=== PATIENT | female | born 1970 | race Caucasian/White ===

== ENCOUNTER 2023-02-15 06:57 | Day surgery (SDC) | payer OTHER, SELFPAY ==
[2023-01-30 11:26] VITALS: BMI 30.6
--- NOTE | 2023-02-14 08:47 | P.PNAN_ITS ---
Anes - Initial Pre Proc Eval Procedure: Operation Date: 02/15/23 07:30 Proposed Procedures p Brostrum Procedure Right Ankle - Ramses Montes JR, MD Date/Time: 02/14/23 08:47 Surgeon: Ramses Montes JR, MD Pre Op Diagnosis: Chronic Lateral Right Ankle Instability Patient Data Age: 52 Gender: F Height: 1.68 m Weight: 86 kg Allergies Allergy/AdvReac Type Severity Reaction Status Date / Time No Known Allergies Allergy Verified 02/15/23 06:20 Home Medications Medication Instructions Recorded Confirmed Type oxycodone-acetaminophen 5 mg-325 1 tablet PO PRN PRN Pain 02/15/23 02/15/23 History mg tablet rivaroxaban 10 mg tablet (Xarelto) 10 mg PO DAILY 02/15/23 02/15/23 History Patient hx anesthesia problems: none Family hx anesthesia problems: none Results Review: All pre-operative results and documents have been reviewed as part of the pre- operative evaluation. [facility] Family History Family History Father Diabetes mellitus Family history of pancreatic cancer Mother Diabetes mellitus Hypertension Family history of elevated blood lipids Grandparent Family history of glaucoma Sibling Family history of thyroid disease Social History Social History Smoking status: Never smoker Second hand tobacco smoke exposure: No Alcohol intake: current Drinks per week: 0 Alcohol use details: SELDOM Substance use: never Substance use type: does not use Living arrangements: with family Spiritual care concerns: No Anes - Eval Final PreProcedure Day of Procedure 02/14/23 08:47 Patient weight: obese Heart: regular rate and rhythm Lungs: clear to auscultation Airway: Mallampati scale class II Neurological: alert and oriented Last oral intake: >/= 8 hours ASA classification: II Emergent: no Anesthetic plan: proceed Anesthesia type and monitoring: general ETT and standard monitoring Results Review: All pre-operative results and documents have been reviewed as part of the pre- operative evaluation. Informed Consent: The patient's anesthetic plan and its attendant risks and benefits were discussed with the patient/family/POA. Questions were solicited and answers pro vided to the satisfaction of the patient/family/POA.
[2023-02-15] VITALS (7 sets, daily range): BP systolic 121–152; BP diastolic 74–108; PULSE 69–114; RESP 14–18; TEMP 36.2–36.4; O2SAT 98–100
--- NOTE | ~2023-02-15 | XR_ITS ---
EXAMINATION: XR surgery orthopedic DATE: 02/15/2023 08:58 INDICATION: Brostrom procedure at the right ankle TECHNIQUE: Lateral fluoroscopic images of the right ankle, mid and hindfoot were obtained during proc edure performed by Dr. Montes. Radiologist was not present for the imaging or procedure. The amount of fluoroscopy time used during this procedure was 0.1 minutes. COMPARISON: None. FINDINGS: Bone alignment is normal. No fracture. Joint spaces appear normal. Small Achilles and plantar calcane al spurs. The tip of a metallic wire potentially for marking projects on the anterior margin of the d istal tip of the calcaneus near the expected site of insertion of the anterior talofibular ligament. IMPRESSION: 1. Fluoroscopy utilized during reported Brostrom procedure at the right ankle. See procedure note for further detail. Reviewed, dictated and finalized at location A.
[2023-02-15] MEDS: LACTATED RINGERS 1,000 ML 30 ML IV CONT ×2 (07:12→09:33)
--- NOTE | 2023-02-15 07:17 | WPDHPUPDATE1 ---
History and Physical Update Update Date/Time: 02/15/23 07:17 History and Physical has been reviewed, including an updated exam of the patient. There are NO changes in the patient's condition. Risks, benefits, and alternatives have been discussed and questions answered. Patient agrees to proceed with procedure.
[2023-02-15] MEDS: ceFAZolin SODIUM 2 GM/20 ML SW SYRINGE IV PUSH (07:30)
[2023-02-15] MEDS: LIDOCAINE HCL 2% LOCAL INJ 20 ML VIAL 10 ML INFILTRATE (08:29)
--- NOTE | 2023-02-15 08:54 | W.PM.PROC2 ---
Procedure Note - Detailed Date of Procedure 02/15/23 Pre-op Diagnosis Chronic Lateral Right Ankle Instability Post-op Diagnosis Same Procedure Performed Brostrom Lateral ankle stabilization right Surgeon Ramses Montes JR, DPM Anesthesia General and Local Indications Painful unstable right ankle Description of Procedure Under mild sedation, the patient was brought in to the operating room, placed on the operating table in the lateral decubitus position. A pneumatic thigh tourniquet was placed about the patient's thigh. Following general anesthesia, local anesthesia was obtained about the proximal leg utilizing 20 mL of local anesthesia of a one to one mix of 0.5% Marcaine plain and 2% Lidocaine plain, administered just inferior and posterior to the neck of the fibula 10ccs and also 10cm superior to the lateral malleolus with an additional 10cc's. The foot and distal leg were then scrubbed, prepped, and draped in the usual aseptic manner. An Esmarch bandage was then used to exsanguinate the patient's foot and ankle and the pneumatic thigh tourniquet was then inflated. An incision was made starting 2cm proximal to the lateral malleolus of the right ankle extending four centimeters in an oblique fashion over the lateral aspect of neck of the talus. The incision was continued deep down through the subcutaneous tissues using sharp and blunt dissection. All bleeders were ligated and cauterized as necessary. Next I identified the anterior aspect of the lateral malleolus and cut through the lateral anterior capsule and the elongated lateral ankle ligaments exposing the anterior and inferior margins of the distal fibula. I used a rongeur to expose cancellous bone in order to promote adhesion along the anterior and inferior aspect of the fibular. Next, I utilized the Arthrex Drill guide to drive a guide wire for the Arthrex internal brace system into the lateral aspect of the talus. The guide was positioned within the sinus tarsi canal with the paddle at the four thirty position in order to appropriately orient the distal arm of the internal brace anchor. I utilized fluoroscopy to make sure that the guide wire was adequately positioned. Moreover, I tapped and screwed in the distal anchor for the Internal Brace Implant. Next, I drilled two holes and tapped in the biocomposite Suture Sukhjinder anchors. In addition in between the Suture Sukhjinder drill holes I drilled a hole for the fibular component of the Internal Brace system. Next, with the foot everted and dorsiflexed I advanced the lateral ankle ligament and retinaculum to the fibula. Finally I properly tensioned the fibular component of the Arthrex Internal brace system and drove in the bone anchor following the standard technique guidelines. the foot was held slightly flexed and neutral in the frontal plane during the tensioning of the Internal brace. I utilized the remaining two sutures and provided needles from the Suture Taks to reinforce the repair by incorporating the lateral ankle capsule and ligaments and secured to the periosteum overlying the distal fibula. Excellent improvement was noted as far as the clinical anterior drawer and talar tilt. Next the subcutaneous structures were reapproximated and coapted utilizing 4-0 Vicryl. Next, the skin was reapproximated and coapted utilizing 4-0 Monocryl in running subcuticular suture fashion technique. Upon completion of the procedure, the incisions were all dressed with 1/4 inch Steri Strips, Adaptic, 4x4s, Kerlix, and Coban. The pneumatic thigh tourniquet was then deflated and a prompt hyperemic response was noted to all digits of the affected foot. A posterior splint was then applied with the foot held 90 degrees to the leg and the foot everted. The patient did very well with the procedure and the anesthesia. The patient was transferred to the recovery room with vital signs stable and vascular status intact to all toes of the affected foot. Following a per
[2023-02-15] MEDS: fentaNYL CITRATE INJ (*CRX) 100 MCG/2 ML VIAL 25 MCG IV PUSH ×3 (09:14→09:38)
--- NOTE | 2023-02-15 09:48 | WPDANESPN ---
Anes - Prog Note Post-Op Date/Time: 02/15/23 09:48 Cardiovascular status: normal Respiratory status: normal Airway patency: baseline Mental status: baseline Post-Op hydration status: normal Vital Signs: Last Vital Signs Temp 36.2 C L 02/15/23 08:57 Pulse 97 02/15/23 09:40 Resp 18 02/15/23 09:40 BP 121/74 02/15/23 09:40 Pulse Ox 98 02/15/23 09:40 O2 Del Method Room Air 02/15/23 09:40 O2 Flow Rate 10 02/15/23 09:10 Pain Score (VAS): 2 I/O: Intake & Output 02/14/23 02/15/23 02/15/23 23:59 07:59 15:59 Intake Total 1100 Balance 1100 Post-procedural complaints: none Patient Feedback: Patient satisfied with anesthetic care. Other Findings: Patient vital signs back to baseline. Patient denies nausea and vomiting. Patient's pain under control. Patient OK for discharge.
[2023-02-15] MEDS: oxyCODONE HCL (*CRX) 5 MG TAB IR PO (10:25)
== END 2023-02-15 10:30 | disposition home or self-care (01) ==
PROVIDERS: PCP Family Medicine; Visit Provider Podiatrist Foot & Ankle Surgery
PROC: (CPT 27698; principal; 2023-02-15 07:30)
DX: M25.371 Other instability, right ankle (principal)
CPT/HCPCS: 27696; L8699; 99199

== ENCOUNTER → 2023-08-08 07:50 | Outpatient (CLI) | payer OTHER, SELFPAY ==
--- NOTE | ~2023-08-08 | MR_ITS ---
MRI of the right knee Clinical history: Pain Technique: Coronal proton density and proton density-weighted images, sagittal proton-density and T2 fat-sat images, and axial proton-density fat-saturated images were acquired. Findings: Anterior and posterior cruciate ligaments are intact. Medial collateral ligament and the la teral collateral ligament complex are intact. Popliteus tendon is intact. There is a radial tear at the posterior root of the medial meniscus. No lateral meniscal tear identif ied. There is high-grade chondral loss extensively involving the lateral patellar facet, with subchondral cystic change present. Remaining articular cartilage is well preserved. Remaining bone marrow signals are unremarkable. Extensor mechanism is intact. There is moderate joint effusion. No Weiss's cyst. Impression: Radial tear at the posterior root of the medial meniscus. Grade IV chondromalacia patella, as detailed above. Moderate joint effusion. Reviewed, dictated and finalized at [facility]. [employer] OFFICER Impression: Radial tear at the posterior root of the medial meniscus. Grade IV chondromalacia patella, as detailed above. Moderate joint effusion.
== END ==
PROVIDERS: PCP Family Medicine; Visit Provider Family Medicine
DX: M25.461 Effusion, right knee (principal)
CPT/HCPCS: 73721

== ENCOUNTER 2023-12-16 01:16 | Day surgery (SDC) | payer OTHER, SELFPAY ==
[2023-12-11 11:43] VITALS: BMI 33.3
--- NOTE | 2023-12-11 11:44 | PC.NURSE ---
Report to the Outpatient Waiting Room, entrance under the green pavilion located off [facility], at time _1300_ on date [id number]_. Planned Procedure Time: _1500_. Time changes happen often and if your time is changed the preop area will call you the afternoon before. - You and your visitor will be asked to self-screen and do not enter if you have any COVID symptoms. - A mask is optional within the hospital at this time. Patients may have clear liquids (water, carbonated beverages, clear teas, apple juice) until 3 hours prior to surgery with a maximum of 20 ounces. - No food from midnight until time of surgery Take the following medications with a SIP of water the morning of surgery: ____None DO NOT STOP ANY OF YOUR OTHER PRESCRIPTION MEDICATIONS PRIOR TO SURGERY ?EXCEPT THE FOLLOWING Medications to discontinue per physician None Date to take last dose Please no make-up, nail comoran, hairspray, perfume, deodorant, or body powder the day of surgery. No jewelry (including any body piercings) or valuables the day of surgery, leave them at home. Please take a shower or bath the night before, or the morning of, surgery with an antibacterial soap. Wear comfortable, loose fitting clothing. - Jewelry must be removed prior to entering the operating room. Rings and piercings that are not removed may be cut off. - The hospital will not accept responsibility for valuables. - Please leave all valuables, including medications, at home the day of surgery. If you are going home after surgery, a licensed local owner operator truck driver must drive you home. - NO public transportation without another adult if you receive anesthesia. - We recommend that an adult stay with you for 24 hours following discharge. - We also recommend that you do not drive, make important decision, drink alcoholic beverages, or take any drugs that were not prescribed by your health care provider for at least 24 hours after your discharge time. Follow any additional instructions given to you from your surgeon. If you or anyone in your household have experienced Covid symptoms in the past week, please notify your surgeon or the nurse liaison at the phone number below for possible testing. Telephone instructions given to _Darlene___and asked if any additional questions and then verbalized understanding. Patient advised to call surgeon office or pre surgery nurse liaison [phone] if any additional questions.
[2023-12-16] VITALS (8 sets, daily range): BP systolic 125–144; BP diastolic 69–89; PULSE 68–98; RESP 16–18; TEMP 36.1–36.3; O2SAT 97–100
--- NOTE | 2023-12-16 10:22 | WPDHPUPDATE1 ---
History and Physical Update Update Date/Time: 12/16/23 10:22 History and Physical has been reviewed, including an updated exam of the patient. There are NO changes in the patient's condition. Risks, benefits, and alternatives have been discussed and questions answered. Patient agrees to proceed with procedure.
[2023-12-16] MEDS: LACTATED RINGERS 1,000 ML 30 ML IV CONT ×2 (13:20→15:30)
[2023-12-16] MEDS: KETOROLAC 15 MG/ML VIAL (*BKC) IV PUSH (13:25)
[2023-12-16] MEDS: ACETAMINOPHEN 500 MG TABLET 1000 MG PO (13:25)
--- NOTE | 2023-12-16 14:01 | WPDANESEPPF ---
Anes - Initial Pre Proc Eval Procedure: Operation Date: 12/16/23 15:00 Proposed Procedures p Right Knee Arthroscopic Partial Medial Meniscectomy with Patellar Chondroplasty - Lito Lamar MD Date/Time: 12/16/23 14:01 Surgeon: Lito Lamar MD Pre Op Diagnosis: Rt Knee Medial Meniscus Tear Patient Data Age: 53 Gender: F Height: 1.68 m Weight: 93.7 kg Last Vital Signs Temp 96.9 F L 12/16/23 12:45 Pulse 92 12/16/23 12:45 Resp 18 12/16/23 12:45 BP 139/89 12/16/23 12:45 Pulse Ox 98 12/16/23 12:45 O2 Del Method Room Air 12/16/23 12:45 Allergies Allergy/AdvReac Type Severity Reaction Status Date / Time No Known Allergies Allergy Verified 12/16/23 12:54 Home Medications Medication Instructions Recorded Confirmed Type hydrocodone 5 mg-acetaminophen 325 1 - 2 tablet PO Q4-6H PRN pain #30 12/16/23 Rx mg tablet tabs Patient hx anesthesia problems: none Family hx anesthesia problems: none Results Review: All pre-operative results and documents have been reviewed as part of the pre-operative evaluation. [facility] Surgical History Surgical History History of knee surgery x3 - Lt Knee Family History Family History Father Diabetes mellitus Family history of pancreatic cancer Mother Diabetes mellitus Hypertension Family history of elevated blood lipids Grandparent Family history of glaucoma Sibling Family history of thyroid disease Social History Social History Smoking status: Never smoker Second hand tobacco smoke exposure: No Alcohol intake: current Drinks per week: 0 Alcohol use details: SELDOM Substance use: never Substance use type: does not use Do You Feel Safe in your Home?: Yes Lack of Transportation: No Lack of Food: Never True Current Housing: I Have Housing Concerned About Future Housing: No Difficulty Paying Gas/Electric Bills: No Difficulty Paying for Meds: No Currently Unemployed: No Education: High School Diploma/GED Difficulty w/ Childcare or Family Care: No Living arrangements: with family Spiritual care concerns: No Anes - Eval Final PreProcedure Day of Procedure 12/16/23 14:01 Patient weight: normal and obese Heart: regular rate and rhythm Lungs: clear to auscultation Airway: Mallampati scale Neurological: alert and oriented Last oral intake: >/= 8 hours ASA classification: II Emergent: no Anesthetic plan: proceed Anesthesia type and monitoring: general LMA and standard monitoring Results Review: All pre-operative results and documents have been reviewed as part of the pre-operative evaluation. Informed Consent: The patient's anesthetic plan and its attendant risks and benefits were discussed with the patient/family/POA. Questions were solicited and answers provided to the satisfaction of the patient/family/POA.
[2023-12-16] MEDS: ceFAZolin 2 GM/D5W 50 ML 2 GM/50 ML BAG IVPB (14:44)
[2023-12-16] MEDS: BUPIVACAINE/EPINEPHRINE 0.5% 10 ML VIAL 20 ML INFILTRATE (15:16)
--- NOTE | 2023-12-16 15:38 | W.PM.PROC2 ---
Procedure Note - Detailed Date of Procedure 12/16/23 Pre-op Diagnosis 1. Rt Knee Medial Meniscus Tear 2. Degenerative joint disease Post-op Diagnosis Same Procedure Performed Arthroscopic partial medial meniscectomy, right knee, with chondroplasty. Surgeon Lito Lamar MD Anesthesia General Findings Small medial meniscus tear treated with debridement. Chondroplasty at the medial femur and patellofemoral joint. Medial femur chondromalacia grade 3, medial tibia grade 1. Lateral femur chondromalacia grade 0, lateral tibia grade 1. Patellar grade 4, trochlea grade 3. Description of Procedure The patient was identified and the surgical site confirmed and signed in the preoperative holding area. Antibiotics were started per protocol, and the patient was brought to the operative room and transferred to the OR table. A general anesthetic was administered. Supine position with the operative lower extremity position in the leg garcia after placement of a well padded tourniquet. The leg support was lowered and the contralateral limb was supported with a soft bolster. The knee was prepped and draped in the usual sterile fashion. A time-out was performed. The portal sites were marked and infiltrated with 0.5% Marcaine 20 mL. The limb was exsanguinated and the tourniquet inflated to 300 mL Hg. Standard inferolateral and inferomedial portals were established. Inflow was obtained with the saline pump. The camera was introduced. Diagnostic inspection of the joint was accomplished. The meniscus was debrided with the arthroscopic shaver and punches until stable. The radiofrequency probe was also used for further d?bridement. Gentle chondroplasty was performed on the medial femur, the patella, and the trochlea. The lateral compartment was fairly benign although there was some weight-bearing degeneration on the tibial plateau. The arthroscopic instruments were removed. The tourniquet released and wounds closed with subcutaneous 4-0 Monocryl absorbable suture. Steri strips and a sterile dressing were applied. A light elastic wrap was placed. The patient was extubated and brought to the recovery room in stable condition. Estimated Blood Loss 5 Tourniquet Time Total Tourniquet Time: 16 Drains No Complications No immediate complications Condition Stable Disposition PACU [facility] Billing Surgery - Charge Forward: Surgery Billing
== END 2023-12-16 17:18 | disposition home or self-care (01) ==
PROVIDERS: PCP Family Medicine; Visit Provider Orthopaedic Surgery
PROC: (CPT 29870; principal; 2023-12-16 15:00)
DX: S83.241A Other tear of medial meniscus, current injury, right knee, initial encounter (principal); M94.261 Chondromalacia, right knee; M17.11 Unilateral primary osteoarthritis, right knee; E66.9 Obesity, unspecified; Z79.891 Long term (current) use of opiate analgesic; Z80.0 Family history of malignant neoplasm of digestive organs; X58.XXXA Exposure to other specified factors, initial encounter
CPT/HCPCS: 29881; A9270; J0690; J1100; J1170; J1885; J2250; J2405; J2704; J3010; J7120

== ENCOUNTER 2024-04-14 09:31 | Outpatient (CLI) | payer OTHER, SELFPAY ==
[2024-04-14 12:50] LABS: Basophils Percent Auto 0.3 % (0.2-1.2); Eosinophils Absolute Auto 0.1 K/mm3 (0-0.3); Eosinophils Percent Auto 0.5 % (0-4.4); Hematocrit 46.9 % (37.0-47.0); Hemoglobin 15.4 g/dL (12.0-15.0); Immature Granulocyte Absolute 0.03 K/mm3 (0.00-0.031); Immature Granulocyte Percent A 0.3 % (0-0.5); Lymphocytes Absolute Auto 3.18 K/mm3 (0.9-3.2); Lymphocytes Percent Auto 29.6 % (18.3-44.2); Mean Corpuscular HGB Conc 32.8 g/dl (32-36); Mean Corpuscular Hemoglobin 30.1 pg (26-34); Mean Corpuscular Volume 91.6 fl (80-100); Mean Platelet Volume 9.4 fl (7.4-10.4); Monocytes Absolute Auto 0.6 K/mm3 (0.1-0.6); Monocytes Percent Auto 5.4 % (2.6-8.5); Neutrophils Absolute Auto 6.9 K/mm3 (1.3-6.7); Neutrophils Percent Auto 63.9 % (45.5-73.1); Platelet Count Result 283 k/mm3 (150-375); Red Blood Count 5.12 M/mm3 (4.2-5.4); Red Cell Distribution Width 11.8 % (11.5-14.5); White Blood Count 10.8 K/mm3 (4.5-10.0)
[2024-04-14 13:47] LABS: Vitamin D 25 Hydroxy 17.8 ng/mL
[2024-04-14 14:01] LABS: Alanine Aminotransferase 48 U/L (6-35); Albumin Level 4.6 g/dL (3.5-5.1); Alkaline Phosphatase 101 U/L (38-126); Anion Gap 12 mmol/L (4-12); Aspartate Amino Transferase 46 U/L (14-36); Bilirubin,Total 0.8 mg/dL (0.2-1.3); Blood Urea Nitrogen 13 mg/dL (7-17); Calcium 9.6 mg/dL (8.4-10.2); Carbon Dioxide 29 mmol/L (22-30); Chloride 96 mmol/L (98-107); Cholesterol 256 mg/dL (0-200); Estimated Glomerular Filt Rate > 60; Glucose 187 mg/dL (65-110); HDL Direct 43 mg/dL; Potassium 3.7 mmol/L (3.4-5.0); Sodium 137 mmol/L (137-145); Triglycerides 248 mg/dL (<150)
[2024-04-14 14:16] LABS: LDL Cholesterol Direct 166 mg/dL
== END 2024-04-14 09:32 | disposition home or self-care (01) ==
LOC: ANHGOSHLAB 09:34
PROVIDERS: PCP Family Medicine; Visit Provider Nurse Practitioner Family
DX: Z00.00 Encounter for general adult medical examination without abnormal findings (principal); E55.9 Vitamin D deficiency, unspecified
CPT/HCPCS: 36415; 80053; 80061; 82306; 84443; 85025

== ENCOUNTER 2024-05-05 14:07 | Outpatient (CLI) | payer OTHER, SELFPAY ==
--- NOTE | ~2024-05-05 | MM_ITS ---
EXAMINATION: MM screening alonzo BI w danielle HISTORY: Screening TECHNIQUE: Craniocaudal and mediolateral oblique 3-D tomosynthesis images were obtained and synthetic 2-D images were generated. CAD analysis was submitted and interpreted. COMPARISON: Comparison to multiple prior studies sequentially, with oldest reviewed study dated 07/05. BREAST PARENCHYMAL COMPOSITION: Not dense: There are scattered areas of fibroglandular density. FINDINGS: There is no evidence of suspicious mass, calcification, or architectural distortion to sugg est malignancy in either breast. There has been no suspicious interval change. IMPRESSION: 1. No mammographic evidence of malignancy. 2. Recommend routine screening mammography in one year. BI-RADS Category 1: Negative Reviewed, dictated and finalized at location B.
== END 2024-05-05 14:08 | disposition home or self-care (01) ==
LOC: MICIMG 14:08
PROVIDERS: PCP Family Medicine; Visit Provider Nurse Practitioner Family
DX: Z12.31 Encounter for screening mammogram for malignant neoplasm of breast (principal)
CPT/HCPCS: 77063; 77067

== ENCOUNTER 2024-05-11 07:55 | Outpatient (CLI) | payer OTHER, SELFPAY ==
[2024-05-11 13:30] LABS: Alanine Aminotransferase 51 U/L (6-35); Albumin Level 4.1 g/dL (3.5-5.1); Alkaline Phosphatase 94 U/L (38-126); Anion Gap 9 mmol/L (4-12); Aspartate Amino Transferase 52 U/L (14-36); Bilirubin,Total 0.6 mg/dL (0.2-1.3); Blood Urea Nitrogen 10 mg/dL (7-17); Calcium 9.2 mg/dL (8.4-10.2); Carbon Dioxide 28 mmol/L (22-30); Chloride 103 mmol/L (98-107); Estimated Glomerular Filt Rate > 60; Glucose 216 mg/dL (65-110); Potassium 4.1 mmol/L (3.4-5.0); Sodium 140 mmol/L (137-145)
[2024-05-11 13:40] LABS: Hepatitis B Surface Antigen Negative (Negative)
[2024-05-11 13:45] LABS: HAV RESULT Negative (Negative); Hepatitis B Core IgM Result Negative (Negative)
[2024-05-11 13:57] LABS: Hepatitis C Virus Antibody Negative (Negative)
[2024-05-11 14:37] LABS: Hemoglobin A1C 8.7 % (<5.7)
== END 2024-05-11 07:56 | disposition home or self-care (01) ==
LOC: ANHGOSHLAB 07:56
PROVIDERS: PCP Family Medicine; Visit Provider Family Medicine
DX: R73.9 Hyperglycemia, unspecified (principal); R74.01 Elevation of levels of liver transaminase levels
CPT/HCPCS: 36415; 80053; 80074; 83036

== ENCOUNTER 2024-09-04 02:28 | Day surgery (SDC) | payer OTHER, SELFPAY ==
[2024-08-25 13:24] VITALS: BMI 30.7
--- NOTE | 2024-08-25 13:39 | SUR.PREOP ---
Report to the Outpatient Waiting Room, entrance under the green pavilion located off [facility], at time 0800 on date 09/04/2024. Planned Procedure Time: 1000.? Time changes happen often and if your time is changed the preop area will call you the afternoon before. - You and your visitor will be asked to self-screen and do not enter if you have any COVID symptoms. Please call surgeon if you need to reschedule. - A mask is optional within the hospital at this time. Patients may have clear liquids (water, carbonated beverages, clear teas, apple juice) until 3 hours prior to surgery with a maximum of 20 ounces. - No food from midnight until time of surgery and no smoking. This includes no chewing gum, candy or mints. Take only the following medications with a SIP of water on the morning of surgery: N/A DO NOT STOP ANY OF YOUR OTHER PRESCRIPTION MEDICATIONS PRIOR TO SURGERY EXCEPT THE FOLLOWING Medications to discontinue per physician N/A Please no make-up, nail welsh, hairspray, perfume, deodorant, or body powder the day of surgery.? No jewelry (including any body piercings) or valuables the day of surgery, leave them at home.? Please take a shower or bath the night before, or the morning of, surgery with an antibacterial soap.? Wear comfortable, loose fitting clothing.? - Jewelry must be removed prior to entering the operating room.? Rings and piercings that are not removed may be cut off. - The hospital will not accept responsibility for valuables.? - Please leave all valuables, including medications, at home the day of surgery. If you are going home after surgery, a licensed driver recruiter must drive you home.? - NO public transportation without another adult if you receive anesthesia. - We recommend that an adult stay with you for 24 hours following discharge. - We also recommend that you do not drive, make important decision, drink alcoholic beverages, or take any drugs that were not prescribed by your health care provider for at least 24 hours after your discharge time. Follow any additional instructions given to you from your surgeon. Telephone instructions given to ____patient and asked if any additional questions and then verbalized understanding. Patient advised to call surgeon office or pre surgery nurse liaison [phone] if any additional questions.
--- OUTSIDE RECORDS SUMMARY | 2024-09-04 02:31 | XMS_ITS | Clinical Summary ---
Author Organization [facility] Address [address] [place] [place] [address] [place] [address] Care Team Providers Care Reporting Analyst Name Role Phone Matt Capellan MD Primary Care Provider [phone] Allergies No known active allergies Medications HYDROcodone-acet aminophen (NORCO) 5-325 MG tabletIndication s:Acute Pain < 7 Day Supply Take 1 tablet by mouth every 4 (four) hours as needed for Pain. Indications: Acute Pain < 7 Day Supply 16 tablet 1 Active traMADol 50 MG tabletIndication s:Acute Pain < 7 Day Supply Take 1 tablet (50 mg total) by mouth every 6 (six) hours as needed for Pain (Do not take with hydrocodone or alcohol). Indications: Acute Pain < 7 Day Supply Take along with one Tylenol 325 mg tablet 15 tablet 1 Active ASPIRIN EC 81 MG tabletIndication s:Closed fracture of distal end of left fibula, unspecified fracture morphology, initial encounter TAKE 1 TABLET BY MOUTH 2 TIMES A DAY FOR 30 DAYS. FOR BLOOD CLOT PREVENTION 60 tablet 1 Active Family History Medical History Relation Comments Cancer Father Diabetes Father Diabetes Mother Hypertension Mother Relation Status Comments Father Mother Social History Tobacco Use Types Packs/Day Years Used Date Smoking Tobacco: Never Smokeless Tobacco: Never Tobacco Cessation:Counseling Given: No Alcohol Use Standard Drinks/Week Comments Yes 0 (1 standard drink = 0.6 oz pur e alcohol) occasional Comments No Sex and Gender Information Value Date Recorded Sex Assigned at Not on file Legal Sex Female 6:59 PM CDT Gender Identity Not on file Sexual Orientation Not on file Last Filed Vital Signs Vital Sign Reading Time Taken Comments Blood Pressure 128/77 09/16/2020 8:26 AM MINE SAFETY ENGINEER Pulse 84 09/16/2020 8:26 AM MINE SAFETY ENGINEER Temperature 36.7 ??C (98 ??F) 09/16/2020 8:26 AM MINE SAFETY ENGINEER Respiratory Rate 18 09/16/2020 8:26 AM MINE SAFETY ENGINEER Oxygen Saturation 95% 09/16/2020 8:26 AM MINE SAFETY ENGINEER Inhaled Oxygen Concentration - - Weight 89.8 kg (198 lb) 09/16/2020 8:26 AM MINE SAFETY ENGINEER Height 167.6 cm (5' 6 ) 09/16/2020 8:26 AM MINE SAFETY ENGINEER Body Mass Index 31.96 09/16/2020 8:26 AM MINE SAFETY ENGINEER Plan of Treatment Health Maintenance Due Date Last Done Comments Cervical Cancer Screening Pa p Smear (Age 30 to 64) Every 3 Years 1971 Colorectal Cancer Screening Colonoscopy (10 Years) 1971 Annual Physical 1974 Hepatitis C 1989 DTaP, Tdap and Td Vaccines ( 1 - Tdap) 1990 Hepatitis B Vaccines (1 of 3 - 19+ 3-dose series) 1990 Cervical Cancer Screening Pa p with HPV Testing (Age 30 to 64) Every 5 Years 2001 Cervical Cancer Screening with HPV 2001 Mammogram Screening 2011 Zoster Vaccines (1 of 2) 2021 COVID-19 Vaccine ( - 2023-2 5 season) 2024 Influenza Adult (#1) 2024 Meningococcal B Vaccine Aged Out No l onger eligible based on patient's age to complete this topic Meningococcal Vaccine Aged Out No danette elizabeth eligible based on patient's age to complete this topic Pneumococcal Vaccine: Pediat rics (0 to 5 Years) and At-Risk Patients (6 to 64 Years) Aged Out No longer eligible b ased on patient's age to complete this topic RSV Immunizations Under 20 Months Aged Out No longer eligible based on patient's age to complete this topic Additional Health Concerns Infection Onset Date Last Indicated MRSA 08/25/2018 08/25/2018 Insurance [employer] Care Teams Reporting Analyst Relationship Specialty Start Date End Date Matt Capellan MD PCP - General FAMILY PRACTICE 03/01/19
--- NOTE | 2024-09-04 07:15 | WPDHPUPDATE1 ---
History and Physical Update Update Date/Time: 09/04/24 07:15 History and Physical has been reviewed, including an updated exam of the patient. There are NO changes in the patient's condition. Risks, benefits, and alternatives have been discussed and questions answered. Patient agrees to proceed with procedure.
[2024-09-04] MEDS: LACTATED RINGERS 1,000 ML 30 ML IV CONT (08:10)
[2024-09-04 08:20] VITALS: BMI 31.0
[2024-09-04 08:23] VITALS: BP 138/86; PULSE 101; RESP 18; TEMP 36.4; O2SAT 97
--- NOTE | 2024-09-04 09:11 | WPDANESEPPF ---
Anes - Initial Pre Proc Eval Procedure: Operation Date: 09/04/24 10:00 Proposed Procedures p Partial Plantar Fasciectomy Left Foot - Ramses Montes Jr., DPM Date/Time: 09/04/24 09:11 Surgeon: Ramses Montes Jr., DPM Pre Op Diagnosis: plantar fasciitis left foot Patient Data Age: 54 Gender: F Height: 1.68 m Weight: 87.2 kg Last Vital Signs Temp 36.4 C 09/04/24 08:23 Pulse 101 H 09/04/24 08:23 Resp 18 09/04/24 08:23 BP 138/86 09/04/24 08:23 Pulse Ox 97 09/04/24 08:23 O2 Del Method Room Air 09/04/24 08:23 Allergies Allergy/AdvReac Type Severity Reaction Status Date / Time No Known Allergies Allergy Verified 09/04/24 08:19 Home Medications ?Medication ?Instructions ?Recorded ?Confirmed ?Type No Home Medications 08/25/24 08/25/24 History Patient hx anesthesia problems: none Family hx anesthesia problems: none Results Review: All pre-operative results and documents have been reviewed as part of the pre-operative evaluation. [facility] Past Medical History Medical History (Updated 09/04/24 @ 09:14 by Marcell Medina DO) Borderline diabetes Surgical History Surgical History Status post medial meniscectomy of right knee (~12/16/23) w/ chondroplasty History of knee surgery x3 - Lt Knee Family History Family History Father Diabetes mellitus Family history of pancreatic cancer Mother Diabetes mellitus Hypertension Family history of elevated blood lipids Grandparent Family history of glaucoma Sibling Family history of thyroid disease Social History Social History Smoking status: Never smoker Second hand tobacco smoke exposure: No Alcohol intake: current Drinks per week: 0 Alcohol use details: Very rare Substance use: never Substance use type: does not use Do You Feel Safe in your Home?: Yes Lack of Transportation: No Lack of Food: Never True Current Housing: I Have Housing Concerned About Future Housing: No Difficulty Paying Gas/Electric Bills: No Difficulty Paying for Meds: No Currently Unemployed: No Education: High School Diploma/GED Difficulty w/ Childcare or Family Care: No Living arrangements: with family Spiritual care concerns: No Anes - Eval Final PreProcedure Day of Procedure 09/04/24 09:11 Patient weight: obese Heart: regular rate and rhythm Lungs: clear to auscultation Airway: Mallampati scale class II Neurological: alert and oriented Last oral intake: >/= 8 hours ASA classification: II Emergent: no Anesthetic plan: proceed Anesthesia type and monitoring: general GIVS and standard monitoring Results Review: All pre-operative results and documents have been reviewed as part of the pre-operative evaluation. Informed Consent: The patient's anesthetic plan and its attendant risks and benefits were discussed with the patient/family/POA. Questions were solicited and answers provided to the satisfaction of the patient/family/POA.
[2024-09-04] MEDS: ceFAZolin 2 GM/D5W 50 ML 2 GM/50 ML BAG IVPB (10:23)
[2024-09-04] MEDS: LIDOCAINE 2% LOCAL INJ 20 ML VIAL 10 ML INFILTRATE (10:45)
[2024-09-04] MEDS: BUPivacaine HCL 0.5% 10 ML AMP INFILTRATE (10:46)
[2024-09-04 11:09] VITALS: BP 109/60; PULSE 93; RESP 14; O2SAT 94
--- NOTE | 2024-09-04 11:10 | W.PM.PROC2 ---
Procedure Note - Detailed Date of Procedure 09/04/24 Pre-op Diagnosis plantar fasciitis left foot Post-op Diagnosis Same Procedure Performed Partial plantar fasciectomy left foot Surgeon Ramses Montes Jr., DPM Anesthesia MAC and Local Indications Chronic inferior left heel pain Findings Thick proximal plantar fascia Description of Procedure Under mild sedation, the patient was brought in to the operating room, placed on the operating table in the supine position. A pneumatic ankle tourniquet was placed about the patient's left ankle. Following general anesthesia, local anesthesia was obtained about the affected lower extremity utilizing 20 mL of a one to mix of 2% Lidocaine plain and 0.5% Marcaine plain to the tibial nerve. The foot was then scrubbed, prepped, and draped in the usual aseptic manner. An Esmarch bandage was then used to exsanguinate the patient's foot and the pneumatic ankle tourniquet was then inflated. Next, an incision was made starting distal to the medial tubercle of the calcaneus extending distally 3cm. All bleeders were cauterized as necessary. Next the dissection was continued down to the plantar fascia it was exposed medially and laterally with [place] retractors. Two thirds of the medial plantar fascia was transected and a 4mm portion was also cut and discarded. The wound site was flushed with sterile saline. The deep subcutaneous tissue was reapproximated with 3.0 Vicryl and the skin was reapproximated with 2.0 Prolene and 3.0 Prolene in Vertical mattress and Simple interrupted suture technique. Upon completion of the procedure, the plantar incision was dressed with adaptic, 4x4 gauze, kerlix and coban. The pneumatic ankle tourniquet was then deflated and a prompt hyperemic response was noted to all digits of the affected foot. A CAM Walker boot was then applied. The patient did very well with the procedure and the anesthesia. The patient was transferred to the recovery room with vital signs stable and vascular status intact to all toes of the affected foot. Following a period of postoperative monitoring, the patient will be discharged home on the following written and oral postoperative instructions: 1. The patient should keep the dressing clean, dry, and intact. Use a cast protector bag with showers. 2. The patient will be non weight bearing with a knee scooter for one week followed by two weeks of protected weight bearing with CAM walker boot. 3. Patient should ice and elevate the affected foot when at rest. 4. The patient is to contact Dr. Montes for all postop care and if any problems arise. 5. Prescriptions were written for Percocet 5/325 dispensed 40 to be taken 1 p.o. q.4-6 hours as needed for severe pain. Estimated Blood Loss 1 Drains No Packing No Pathology None sent Complications No immediate complications Condition Stable Disposition Same day
[2024-09-04 11:35] VITALS: BP 132/76; PULSE 64
[2024-09-04 12:05] VITALS: BP 143/83; PULSE 65; RESP 14
== END 2024-09-04 12:27 | disposition home or self-care (01) ==
PROVIDERS: PCP Family Medicine; Visit Provider Podiatrist Foot & Ankle Surgery
PROC: (CPT 28119; principal; 2024-09-04 10:00)
DX: M72.2 Plantar fascial fibromatosis (principal); M77.52 Other enthesopathy of left foot and ankle; E66.9 Obesity, unspecified; Z68.31 Body mass index [BMI] 31.0-31.9, adult; Z98.890 Other specified postprocedural states; Z80.0 Family history of malignant neoplasm of digestive organs
CPT/HCPCS: 28060; J0690; J1100; J2003; J2250; J2405; J2704; J3010; J7120

== ENCOUNTER 2025-03-30 07:49 | Outpatient (CLI) | payer OTHER, SELFPAY ==
--- OUTSIDE RECORDS SUMMARY | 2025-03-30 07:53 | XMS_ITS | Clinical Summary ---
Author Organization [facility] Address [address] [place] [address] Care Team Providers Care Manager Risk Name Role Phone Matt Capellan MD Primary Care Provider [phone]- [phone] Allergies No known active allergies Medications HYDROcodone-acet [...] Comments Blood Pressure 128/77 09/16/2020 8:26 AM SR. CONSULTANT Pulse 84 09/16/2020 8:26 AM SR. CONSULTANT Temperature 36.7 C (98 F) 09/16/2020 8:26 AM SR. CONSULTANT Respiratory Rate 18 09/16/2020 8:26 AM SR. CONSULTANT Oxygen Saturation 95% 09/16/2020 8:26 AM SR. CONSULTANT Inhaled Oxygen Concentration - - Weight 89.8 kg (198 lb) 09/16/2020 8:26 AM SR. CONSULTANT Height 167.6 cm (5' 6) 09/16/2020 8:26 AM SR. CONSULTANT Body Mass Index 31.96 09/16/2020 8:26 AM SR. CONSULTANT Plan of Treatment Health Maintenance Due Date [...] Screening with HPV 2001 Mammogram Screening 2011 Pneumococcal Vaccine: 50+ Ye ars (1 of 1 - PCV) 2021 Zoster Vaccines (1 of 2) 2021 COVID-19 Vaccine (1 - 2023-2 5 season) 2024 Meningococcal B Vaccine Aged Out No [...] Date Last Indicated MRSA 08/25/2018 08/25/2018 Insurance [employer] Care Teams Manager Risk Relationship Specialty Start Date End Date Matt Capellan MD PCP - General FAMILY PRACTICE 03/01/19
[2025-03-30 14:35] LABS: Hematocrit 50.4 % (37.0-47.0); Hemoglobin 16.4 g/dL (12.0-15.0); Immature Granulocyte Percent A 0.2 % (0-0.5); Lymphocytes Absolute Auto 1.94 K/mm3 (0.9-3.2); Mean Corpuscular HGB Conc 32.5 g/dl (32-36); Mean Corpuscular Hemoglobin 29.1 pg (26-34); Mean Corpuscular Volume 89.4 fl (80-100); Nucleated Red Blood Cells Absolute Auto 0.000 K/mm3 (0.0-0.012); Nucleated Red Blood Cells Perc 0.0 % (0.0-0.2); Platelet Count Result 244 k/mm3 (150-375); Red Blood Count 5.64 M/mm3 (4.2-5.4); White Blood Count 5.0 K/mm3 (4.5-10.0)
[2025-03-30 15:16] LABS: Hemoglobin A1C 10.8 % (<5.7)
[2025-03-30 22:12] LABS: Alanine Aminotransferase 47 U/L (6-35); Albumin Level 4.4 g/dL (3.5-5.1); Alkaline Phosphatase 113 U/L (38-126); Anion Gap 10 mmol/L (4-12); Aspartate Amino Transferase 53 U/L (14-36); Bilirubin,Total 0.6 mg/dL (0.2-1.3); Blood Urea Nitrogen 9 mg/dL (7-17); Calcium 9.8 mg/dL (8.4-10.2); Carbon Dioxide 28 mmol/L (22-30); Chloride 98 mmol/L (98-107); Cholesterol 263 mg/dL (0-200); Estimated Glomerular Filt Rate > 60; Glucose 311 mg/dL (65-110); HDL Direct 36 mg/dL; Potassium 4.9 mmol/L (3.4-5.0); Sodium 136 mmol/L (137-145); Total Protein 8.0 g/dL (6.3-8.2); Triglycerides 272 mg/dL (<150)
[2025-03-30 22:42] LABS: Thyroid Stimulating Hormone 1.000 uIU/mL (0.465-4.680)
== END 2025-03-30 07:50 | disposition home or self-care (01) ==
LOC: ANHGOSHLAB 07:50
PROVIDERS: PCP Family Medicine; Visit Provider Nurse Practitioner Family
DX: R74.01 Elevation of levels of liver transaminase levels (principal); E55.9 Vitamin D deficiency, unspecified
CPT/HCPCS: 36415; 80053; 80061; 82306; 83036; 84443; 85025

== ENCOUNTER 2025-06-21 08:05 | Outpatient (CLI) | payer OTHER, SELFPAY ==
[2025-06-21 13:13] LABS: Cholesterol 243 mg/dL (0-200); HDL Direct 37 mg/dL; Triglycerides 238 mg/dL (<150)
[2025-06-21 13:47] LABS: MALB Creatinine Ratio < 8.9 mg/g (0-30)
[2025-06-21 14:56] LABS: Hemoglobin A1C 7.7 % (<5.7)
== END 2025-06-21 08:06 | disposition home or self-care (01) ==
LOC: ANHGOSHLAB 08:06
PROVIDERS: PCP Family Medicine; Visit Provider Nurse Practitioner Family
DX: E11.69 Type 2 diabetes mellitus with other specified complication (principal); E78.5 Hyperlipidemia, unspecified
CPT/HCPCS: 36415; 80061; 82043; 83036